=== PATIENT | male | born 2000 | race Caucasian/White ===

== ENCOUNTER 2021-07-17 18:21 | Emergency (ER) | payer OTHER ==
[~2021-07-17] VITALS: Ht 182.9 cm; Wt 71.7 kg
[2021-07-17 18:28] VITALS: BP 150/80
[2021-07-17] MEDS ORDERED: KETOROLAC 15 MG/ML VIAL IVP ONE (18:45)
[2021-07-17] MEDS ORDERED: ONDANSETRON 4 MG/2 ML VIAL IVP ONE (18:45)
[2021-07-17] MEDS ORDERED: NACL 0.9% 1,000 ML IV ONE (18:50)
[2021-07-17 19:00] LABS: BASOPHILS % (AUTO) 0.3 % (0.0-2.0); EOSINOPHILS # (AUTO) 0.1 K/uL (0-0.4); EOSINOPHILS % (AUTO) 0.9 % (0.0-4.0); HEMATOCRIT 41.2 % (36-52); HEMOGLOBIN 13.9 g/dL (12.0-18.0); LYMPHOCYTES # (AUTO) 0.8 K/uL (2.0-11.5); LYMPHOCYTES % (AUTO) 8.6 % (20.5-51.1); MEAN CORPUSCULAR HEMOGLOBIN 29 pg (27-31); MEAN CORPUSCULAR HGB CONC 34 g/dL (33-37); MEAN CORPUSCULAR VOLUME 85.5 fL (80-94); MONOCYTES # (AUTO) 0.9 K/uL (0.8-1.0); MONOCYTES % (AUTO) 9.4 % (1.7-9.3); NEUTROPHILS # (AUTO) 7.6 K/uL (1.8-7.7); NEUTROPHILS % (AUTO) 80.8 % (42.2-75.2); PLATELET COUNT (AUTO) 393 K/uL (140-450); RED BLOOD CELL COUNT(AUTO) 4.81 MIL/uL (4.20-6.10); RED CELL DISTRIBUTION WIDTH 13.7 % (11.6-13.7); WHITE BLOOD COUNT (AUTO) 9.4 K/uL (4.5-11.0)
[2021-07-17 19:13] LABS: ALBUMIN 4.1 g/dL (3.4-5.0); CARBON DIOXIDE 27.8 mmol/L (21-32); CREATININE 1.1 mg/dL (0.6-1.3); POTASSIUM 3.8 mmol/L (3.5-5.1); TOTAL BILIRUBIN 0.3 mg/dL (0.0-1.0)
[2021-07-17] MEDS ORDERED: SIMETHICONE 40 MG/0.6 ML PO ONE ×2 (19:30→19:40)
[2021-07-17] MEDS ORDERED: SIME80TA22 PO (19:40)
[2021-07-17 20:17] VITALS: BP 131/71
== END 2021-07-17 20:11 | disposition home or self-care (01) ==
LOC: MED 18:21
DX: R10.32 Left lower quadrant pain (principal); R11.10 Vomiting, unspecified; F12.90 Cannabis use, unspecified, uncomplicated; Z79.899 Other long term (current) drug therapy
CPT/HCPCS: 36415; 74176; 80053; 83690; 85025; 96361; 96374; 96375; 99284; J1885; J2405; J7030; 96372; 99283

== ENCOUNTER 2021-12-16 12:25 | Emergency (ER) | payer OTHER ==
[~2021-12-16] VITALS: Ht 182.9 cm; Wt 84.4 kg
[~2021-12-16 12:25] MED LIST: SIME80TA22 PO
[2021-12-16 12:29] VITALS: BP 122/94
--- NOTE | 2021-12-16 13:20 | NUR ---
PEGGY SOTO ATTEMPTED TO BRING PT BACK, NOT FOUND IN LOBBY/OUTSIDE
--- NOTE | 2021-12-16 13:46 | NUR ---
2ND ATTEMPT TO BRING PT BACK/ NOT FOUND IN LOBBY/OUTSIDE
--- NOTE | 2021-12-16 14:05 | NUR ---
LAST ATTEMPT TO BRING PT BACK, NOT FOUND IN LOBBY/OUTSIDE.PATIENT LEFT WITHOUT BEING SEEN BY DR. JOSEPH/PEGGY SOTO. NO FURTHER CARE PROVIDED FOR PATIENT.
== END 2021-12-16 13:20 | disposition left against medical advice (07) ==
LOC: MED 12:25
DX: M54.50 Low back pain, unspecified (principal); Z53.21 Procedure and treatment not carried out due to patient leaving prior to being seen by health care provider

== ENCOUNTER 2022-08-03 13:54 | Emergency (ER) | payer OTHER ==
[~2022-08-03] VITALS: Ht 182.9 cm; Wt 74.4 kg
[~2022-08-03 13:54] MED LIST changes: -SIME80TA22 PO; +SIME80TA41 PO
[2022-08-03 13:56] VITALS: BP 124/52
--- NOTE | 2022-08-03 15:03 | NUR ---
covid swab and urine collected and sent to lab
--- NOTE | 2022-08-03 15:03 | NUR ---
21 YO MALE. PRESENTS TO THE ED WITH NAUSEA. SIGNIFICANT OTHER AT BEDSIDE. PATIENT STATES HE WAS TOLD TO COME BY SIGNIFICANT OTHER AND PARENTS. STATED HE INGESTED DRUGS.
[2022-08-03 15:04] LABS: BASOPHILS % (AUTO) 0.7 % (0.0-2.0); EOSINOPHILS # (AUTO) 0.2 K/uL (0-0.4); EOSINOPHILS % (AUTO) 3.4 % (0.0-4.0); HEMATOCRIT 40.6 % (36-52); HEMOGLOBIN 13.8 g/dL (12.0-18.0); LYMPHOCYTES # (AUTO) 1.6 K/uL (2.0-11.5); LYMPHOCYTES % (AUTO) 34.4 % (20.5-51.1); MEAN CORPUSCULAR HEMOGLOBIN 30 pg (27-31); MEAN CORPUSCULAR HGB CONC 34 g/dL (33-37); MEAN CORPUSCULAR VOLUME 87.3 fL (80-94); MONOCYTES # (AUTO) 0.4 K/uL (0.8-1.0); MONOCYTES % (AUTO) 7.5 % (1.7-9.3); NEUTROPHILS # (AUTO) 2.5 K/uL (1.8-7.7); PLATELET COUNT (AUTO) 237 K/uL (140-450); RED BLOOD CELL COUNT(AUTO) 4.65 MIL/uL (4.20-6.10); WHITE BLOOD COUNT (AUTO) 4.7 K/uL (4.5-11.0)
[2022-08-03 15:20] LABS: ALBUMIN 4.3 g/dL (3.4-5.0); ASPARTATE AMINOTRANSFERASE 24 U/L (15-37); CARBON DIOXIDE 32.9 mmol/L (21-32); CHLORIDE 104 mmol/L (98-107); CREATININE 1.1 mg/dL (0.6-1.3); GFR ARICAN-AMERICAN 110 mL/min (>90); GLUCOSE 91 mg/dL (74-106); POTASSIUM 4.9 mmol/L (3.5-5.1); SODIUM SERUM 140 mmol/L (136-145); TOTAL BILIRUBIN 0.4 mg/dL (0.0-1.0); UREA NITROGEN, BLOOD 18 mg/dL (7-18)
--- NOTE | 2022-08-03 15:20 | NUR ---
Note chuckyone in EDM - 08/03/22 at 1522 by [email or web address] PATIENT LEFT ER, REFUSED TO SIGN FORMS. INSISTED PATIENT STAY FOR EVALUATION. PATIENT ELOPED AT THIS TIME. NO IV PLACED UPON ELOPEMENT AMBULATED IN STEADY GAIT. ER MADE AWARE
[2022-08-03 15:21] LABS: ACETAMINOPHEN < 0.5 ug/ml (10-30); SALICYLATE < 2.8 mg/dL (2.8-20.0)
[2022-08-03 15:25] LABS: BARBITURATE, URINE NEGATIVE ng/ml (NEG <=200); BENZODIAZEPINE, URINE NEGATIVE ng/mL (NEG <=200); CANNABINOID, URINE NEGATIVE ng/mL (NEG <=50); COCAINE, URINE NEGATIVE ng/mL (NEG <=300); OPIATE, URINE NEGATIVE ng/mL (NEG <=2000); PHENCYCLIDINE SCREEN,URINE NEGATIVE ng/mL (NEG <=25)
--- NOTE | 2022-08-03 15:45 | NUR ---
PATIENT LEFT BEFORE DC PAPERWORK. NO IV PLACED, PATIENT STEADY IN GAIT. NO DISTRESS NOTED.
== END 2022-08-03 15:44 | disposition home or self-care (01) ==
LOC: MED 13:54
DX: Z00.00 Encounter for general adult medical examination without abnormal findings (principal); Z20.822 Contact with and (suspected) exposure to COVID-19; T42.4X5A Adverse effect of benzodiazepines, initial encounter; Z79.899 Other long term (current) drug therapy; Y92.89 Other specified places as the place of occurrence of the external cause
CPT/HCPCS: 36415; 80053; 80305; 85025; 87426; 99283; G0480; G0482

== ENCOUNTER 2022-08-03 17:09 | Emergency (ER) | payer OTHER ==
[~2022-08-03] VITALS: Ht 182.9 cm; Wt 74.4 kg
[2022-08-03 17:15] VITALS: BP 105/59
--- NOTE | 2022-08-03 17:16 | NUR ---
PT AMBULATED TO BED 7
--- NOTE | 2022-08-03 17:19 | NUR ---
MD SALVADOR AT BEDSIDE FOR EVALUATION
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
--- NOTE | 2022-08-03 18:35 | NUR ---
call received from MD CORRALES. to call back when available
--- NOTE | 2022-08-03 19:21 | NUR ---
REPORT GIVEN TO REENA CHUNG. TRANSFER OF CARE AT THIS TIME
--- NOTE | 2022-08-03 20:05 | NUR ---
21 Y/O M presents with taking xanax to help him relax, a half of pill and doesnt remember the mg with depressed like statements about wanting to kill himself and stated "i want to be up there with my sister." pt twin sister is x1week ago, found his best friend by hanging himself last year. awaiting tele pysch from Dr. bedoya. pt is A&Ox4, skin intact, respirations even and unlabored. pt mom stated pt has tried to kill himself before and made comments about wanting to kill himself in the past. PMH-pt denies NKA
--- NOTE | 2022-08-03 20:13 | NUR ---
PT MOTHER CALLED REQUESTING UPDATE
[2022-08-03] MEDS ORDERED: HALOPERIDOL IM 5 MG/ML VIAL ONE (20:19)
[2022-08-03] MEDS ORDERED: HALOPERIDOL IM 5 MG/ML VIAL IM ONE (20:20)
[2022-08-03] MEDS ORDERED: LORazepam 2 MG/ML VIAL IM ONE (20:20)
[2022-08-03] MEDS ORDERED: LORazepam 2 MG/ML VIAL ONE (20:20)
--- NOTE | 2022-08-03 21:05 | NUR ---
[place] [employer] AT BEDSIDE
--- NOTE | 2022-08-03 21:21 | NUR ---
[place] [employer] PLACED PT ON 5150.
--- NOTE | 2022-08-03 22:18 | NUR ---
NICCI collected at 1800 and sent to lab at 2218. dante collected and sent to lab
--- NOTE | 2022-08-03 22:27 | NUR ---
PER MOTHER MEDARDO CORDOVA, SISTER JOSE MIGUEL MAY ALSO BE CALLING/VISITING PT. PT IS AWARE. JOSE MIGUEL RODRIGUEZ [phone]
--- NOTE | 2022-08-03 22:30 | NUR ---
pt's girlfriend is ok to visit and call per pt. girlfriends number [phone]
[2022-08-03 22:31] LABS: BASOPHILS % (AUTO) 0.5 % (0.0-2.0); EOSINOPHILS # (AUTO) 0.2 K/uL (0-0.4); EOSINOPHILS % (AUTO) 4.2 % (0.0-4.0); HEMATOCRIT 37.8 % (36-52); HEMOGLOBIN 12.9 g/dL (12.0-18.0); LYMPHOCYTES # (AUTO) 1.8 K/uL (2.0-11.5); LYMPHOCYTES % (AUTO) 33.2 % (20.5-51.1); MEAN CORPUSCULAR HEMOGLOBIN 30 pg (27-31); MEAN CORPUSCULAR HGB CONC 34 g/dL (33-37); MEAN CORPUSCULAR VOLUME 87.5 fL (80-94); MONOCYTES # (AUTO) 0.5 K/uL (0.8-1.0); NEUTROPHILS # (AUTO) 2.9 K/uL (1.8-7.7); NEUTROPHILS % (AUTO) 53.1 % (42.2-75.2); PLATELET COUNT (AUTO) 226 K/uL (140-450); RED BLOOD CELL COUNT(AUTO) 4.32 MIL/uL (4.20-6.10); RED CELL DISTRIBUTION WIDTH 13.1 % (11.6-13.7); WHITE BLOOD COUNT (AUTO) 5.4 K/uL (4.5-11.0)
[2022-08-03 22:44] LABS: BARBITURATE, URINE NEGATIVE ng/ml (NEG <=200); BENZODIAZEPINE, URINE POSITIVE ng/mL (NEG <=200); CANNABINOID, URINE NEGATIVE ng/mL (NEG <=50); COCAINE, URINE NEGATIVE ng/mL (NEG <=300); OPIATE, URINE NEGATIVE ng/mL (NEG <=2000); PHENCYCLIDINE SCREEN,URINE NEGATIVE ng/mL (NEG <=25)
[2022-08-03 22:47] LABS: ALBUMIN 3.8 g/dL (3.4-5.0); ANION GAP 8.9 (8-16); ASPARTATE AMINOTRANSFERASE 21 U/L (15-37); CARBON DIOXIDE 31.1 mmol/L (21-32); CHLORIDE 106 mmol/L (98-107); GFR ARICAN-AMERICAN 123 mL/min (>90); GLUCOSE 90 mg/dL (74-106); SODIUM SERUM 142 mmol/L (136-145); TOTAL BILIRUBIN 0.3 mg/dL (0.0-1.0); UREA NITROGEN, BLOOD 24 mg/dL (7-18)
[2022-08-03 22:57] LABS: SALICYLATE < 2.8 mg/dL (2.8-20.0)
[2022-08-03 23:16] LABS: ACETAMINOPHEN < 0.5 ug/ml (10-30)
--- NOTE | 2022-08-03 23:33 | NUR ---
ATDIEGO AND MARGARITA HELD. PT DOES NOT NEED MEDICATION, IS NOT AGITATED AND IS COOPERATING WITH STAFF. ATIVAN AND KRISTOPHERL WASTED BY ASHLEY IN WASTE CONTAINER WITH SURESH WALLACE.
--- NOTE | 2022-08-04 01:20 | NUR ---
pt continues to rest in room, no verbal or physical aggresion. awaiting transfer.
--- NOTE | 2022-08-04 04:44 | NUR ---
offered fluids and food x3 and pt refused.
--- NOTE | 2022-08-04 07:15 | NUR ---
Pt report given to Claudine CHUNG. Transfer of care at this time.
--- NOTE | 2022-08-04 07:16 | NUR ---
Report recieved from SHELDON Larsen for transfer of care.
--- NOTE | 2022-08-04 08:25 | NUR ---
Patient provided with breakfast tray. Tray left at bedside.
--- NOTE | 2022-08-04 08:35 | NUR ---
Patient requesting to speak to girlfriend. Phone was called.
--- NOTE | 2022-08-04 08:47 | NUR ---
Attempted to call girlfriend again. No answer.
--- NOTE | 2022-08-04 09:15 | NUR ---
Patient is getting aggitated, attempting to leave and requesting for his personal belongings back. Patient was redirected, security called. Patient was explained [address] Brown.
[2022-08-04] MEDS ORDERED: LORazepam 1 MG TAB PO ONE (10:40)
--- NOTE | 2022-08-04 11:01 | NUR ---
Patient states he feels like he is withdrawing from Percocet. Dr. Brown made aware.
[2022-08-04] MEDS ORDERED: buprenorphine HCL 2 MG sublingual tab SL ONE (11:05)
--- NOTE | 2022-08-04 13:00 | NUR ---
[facility] packet [facility]
--- NOTE | 2022-08-04 15:07 | NUR ---
Patient is sitting up on bed, alert and verbally responsive. Patient has no signs of distress noted.
--- NOTE | 2022-08-04 16:23 | NUR ---
[facility] spoke to Ramona says nurse will call me back once she becomes available to give report.
--- NOTE | 2022-08-04 16:30 | NUR ---
Patient to be transferred to [facility]. Is being transferred due to Higher Level of Care. Receiving facility has accepting physician and available space. ER physician has signed transfer form. Patient or responsible alliance party has agreed to transfer and signed form. Patient belongings inventoried and will be sent with patient. Copy of nursing notes, lab reports, EKG, Physicians Orders and X-rays to be sent with patient. Report called to Elizabeth at receiving facility. [facility] ambulance service has been called for transfer. ETA is now.
[2022-08-04] MEDS ORDERED: HYDROXYZINE HYDROCHLORIDE 25 MG TAB PO ONE (17:10)
--- NOTE | 2022-08-04 17:12 | NUR ---
Report given to Elizabeth at [facility].
--- NOTE | 2022-08-04 17:18 | NUR ---
[facility] AT BEDSIDE FOR TRANSPORT
[2022-08-04 17:27] VITALS: BP 120/67
--- NOTE | 2022-08-04 17:27 | NUR ---
Patient left via [place] with [facility] to [facility].
--- NOTE | 2022-08-04 17:39 | NUR ---
PRIMARY CONTACT NOTIFIED OF TRANSFER.
== END 2022-08-04 17:27 ==
LOC: MED 17:09
DX: R45.851 Suicidal ideations (principal); T42.4X5A Adverse effect of benzodiazepines, initial encounter; Z20.822 Contact with and (suspected) exposure to COVID-19; Y92.89 Other specified places as the place of occurrence of the external cause
CPT/HCPCS: 36415; 80053; 80305; 85025; 87426; 99285; G0480; G0482; J1630; J2060